=== PATIENT | male | born 1990 | race African-American/Black ===

== ENCOUNTER → 2024-06-02 | Outpatient (CLI) | payer OTHER ==
--- NOTE | 2024-06-02 15:11 | HMCIMG ---
CT CHEST W/O CONTRAST HISTORY: TB screening COMPARISON: None TECHNIQUE: Multiple sequential axial images of the chest were obtained from the thoracic inlet through upper abdomen. Patient was not given contrast through intravenous route. FINDINGS: Minimal reticular nodular infiltrates are suspected in the left upper lobe may be related to tuberculosis. Other possibilities cannot be excluded. Right middle lobe linear atelectasis changes are seen. No pleural effusion or pericardial effusion is seen. There is no evidence of pneumothorax. There are normal size mediastinal and hilar lymph nodes. The heart is not enlarged. Degenerative changes of the thoracolumbar spine are present. There is no evidence of adrenal nodule. IMPRESSION: 1. Minimal reticular nodular infiltrates are suspected in the left upper lobe may be related to tuberculosis. Other possibilities cannot be excluded. Right middle lobe linear atelectasis changes are seen. CT was performed with one or more following dose reduction techniques: automated exposure control, adjustment of the mA and kv according to patient's size, or use of a iterative reconstruction technique.
== END | disposition home or self-care (01) ==
LOC: RAH 13:43 → EEVIPCON 14:00
PROVIDERS: ATTEND Family Medicine
DX: Z11.1 Encounter for screening for respiratory tuberculosis (principal); J98.11 Atelectasis; M47.815 Spondylosis without myelopathy or radiculopathy, thoracolumbar region
CPT/HCPCS: 71250